=== PATIENT | male | born 1955 | race Asian ===

== ENCOUNTER 2025-01-06 00:19 | Emergency (ER) | payer MEDICARE, OTHER ==
[~2025-01-06] VITALS: Ht 180.3 cm; Wt 92.3 kg
--- NOTE | 2025-01-06 00:26 | ELECTROCARDIOGRAPH REPORT ---
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
--- NOTE | 2025-01-06 00:45 | Physician Documentation ---
History of Present Illness General Chief Complaint: Hypertension Stated Complaint: HIGH BLOOD PRESSURE/ABD PAIN Time Seen by MD: 00:42 History of Present Illness Initial Comments 69-year-old male with a history of hypertension diabetes presents to the emergency room with complaint of high blood pressure as well as intermittent abdominal pain over the last 24 hours. Patient states that yesterday after drinking a white claw he developed abdominal cramping bloating and some discomfort. Patient states he has continued to have lower abdominal discomfort today took his blood pressure at home and he was getting readings as have as 180/120. He states he feels like he has some chills subjective fevers. Patient denies any diarrhea denies any dysuria frequency or urgency. Patient's symptoms are moderate and persistent. He states he has had an appendectomy in the past. Medication Reconciliation Allergies: Coded Allergies: No Known Allergies (Unverified , 01/06/25) Scheduled Tamsulosin Hcl* (Flomax*), 0.4 MG PO DAILY Review of Systems All Other Systems at this time: Reviewed and Negative Physical Exam Physical Exam Vital Signs: Temperature: 98.4, Heart Rate: 69, Respiratory Rate: 14, BP: 141/72, Pulse Oximetry: 99, Weight: 92.300 Oxygen Flow Rate: 0 Physical Exam VITALS: Reviewed and as above. GENERAL: Alert, no apparent distress. HEENT: Normocephalic, atraumatic, PERRL, EOMI, dry mucosa, no erythema GI: Soft, slight distention slight diffuse abdominal tenderness, bowels sounds present, no rebound, guarding, or rigidity BACK: No CVA tenderness, or swelling MUSCULOSKELETAL: No deformities, no edema SKIN: Warm and dry, no rash NEURO: Oriented x4, No motor or sensory deficit PSYCH: Normal mood and affect, no agitation Progress Results/Orders Results/Orders Orders - OHLAVA GAMBLE MD Chest,Single View (01/06/25 00:21) Monitor (01/06/25 00:21) Saline Lock (01/06/25 00:21) Oxygen (01/06/25 00:21) Hs Troponin I W Calculations (01/06/25 02:21) Hs Troponin I W Calculations (01/06/25 03:21) Ct Abdomen Pelvis (01/06/25 01:54) Completed Orders - AVA CORLEY MD Cbc/Diff (01/06/25 00:20) BMP (01/06/25 00:20) Lipase (01/06/25 00:20) CMP (01/06/25 00:20) Chest,Single View (01/06/25 00:21) PBNP (01/06/25 00:21) Electrocardiogram (01/06/25 00:21) Hs Troponin I W Calculations (01/06/25 00:21) Procalcitonin (01/06/25 00:59) Normal Saline 1000ml (0.9% Sodium Chlori (01/06/25 01:55) Ct Abdomen Pelvis (01/06/25 01:54) Ua W/Microscopic, Cult If Ind (01/06/25 01:42) Acetaminophen 1,000mg/100ml Iv (Ofirmev (01/06/25 02:25) Medications Received in ER Medications (Trade) Dose Ordered Sig/Catrachita Route PRN Reason Start Time Stop Time Status Last Admin Dose Admin (0.9% sodium chloride (NS) 1000ml IV soln) 1,000 ml ONCE ONCE IVB 01/06/25 01:55 01/06/25 01:56 DC 01/06/25 02:18 1,000 ML Vital Signs 01/06/25 01/06/25 01/06/25 01/06/25 00:27 00:46 00:55 03:10 Temp 98.4 98.4 98.4 Pulse 69 65 71 Resp 14 16 18 B/P (MAP) 141/72 162/80 (107) 154/99 Pulse Ox 99 99 99 O2 Flow Rate 0 0 Laboratory Tests Test 01/06/25 00:41 01/06/25 01:36 01/06/25 01:42 White Blood Count 15.3 H Red Blood Count 4.79 Hemoglobin 14.0 Hematocrit 42.1 Mean Corpuscular Volume 88.0 Mean Corpuscular Hemoglobin 29.3 Mean Corpuscular Hemoglobin Concent 33.3 Red Cell Distribution Width 14.7 H Platelet Count 267 Mean Platelet Volume 7.7 Neutrophils (%) (Auto) 86.7 H Lymphocytes (%) (Auto) 9.4 L Monocytes (%) (Auto) 3.6 Eosinophils (%) (Auto) 0.1 Basophils (%) (Auto) 0.2 Neutrophils # (Auto) 13.3 H Lymphocytes # (Auto) 1.4 Monocytes # (Auto) 0.6 Eosinophils # (Auto) 0.0 Basophils # (Auto) 0.0 CBC Comment Sodium Level 140 Potassium Level 3.7 Chloride Level 100 Carbon Dioxide Level 26.9 Anion Gap 13 Blood Urea Nitrogen 15 Creatinine 1.55 H Estimated GFR/1.73 m2 45 BUN/Creatinine Ratio 9.7 L Glucose Level 247 H Calcium Level 10.5 H Total Bilirubin 0.6 Aspartate Amino Transf (AST/SGOT) 56 H Alanine Aminotransferase (ALT/SGPT) 118 H Alkaline Phosphatase 31 L Troponin I High Sensitivity 5 Pro-B-Type Natriuretic Peptide < 30 Total Protein 8.2 Albumin 4.1 Globulin 4.1 Albumin/Globulin Ratio 1.0 L Lipase 35 Procalcitonin < 0.05 Chemistry Comments Glucometer 233 H Urine Specimen Description Cln catch midstream Urine Color Yellow Urine Clarity Clear Urine pH 5.5 Urine Specific [place] 1.025 Urine Protein Negative Urine Glucose (UA) 250 H Urine Ketones 40 H Urine Occult Blood Moderate H Urine Nitrite Negative Urine Bilirubin Negative Urine Urobilinogen 0.2 Urine Leukocyte Esterase Negative Urine RBC 20-50 Urine WBC 0-4 Urine Squamous Epithelial Cells None seen Urine Bacteria Few Urine Culture Indicated Not ind Volume Urine Centrifuged 10 ml Urine Comment EKG/XRAY/CT/US/VASC/MRI CT : Impression Patient: OSMEL ROY Medical Record: [id number] [facility] : 1955, Age: 69 Sex: Male Location: ER Patient Status: REG ER Service Date/Time: 01/06/25153 Ordering Physician: AVA CORLEY MD Exam: CT ABDOMEN PELVIS Exam: CT CT ABDOMEN PELVIS History: abd pain Comparison Study: None Technique: Multidetector spiral CT of the abdomen was performed from lung bases to pubic symphysis. Imaging was performed without IV contrast. Axial, coronal and sagittal multiplanar reformats were obtained from the axial data set by the technologist. Radiation Dose : 1. Abdomen/Pelvis: CTDIvol 20 mGy, DLP 1146 mGy*cm. Findings: Evaluation of solid organs is limited due to lack of intravenous contrast use. Lung Bases: No acute findings. Mild scarring/atelectasis. Liver: Mild diffuse hypoattenuation. Gallbladder and Biliary Tree: Unremarkable Pancreas: Unremarkable. Spleen: Unremarkable. Adrenal Glands: Unremarkable. Kidneys/Ureters: 3 mm stone in the right distal ureter with mild upstream hydroureteronephrosis, periureteral and perinephric stranding. Additional nonobstructing 3 mm stone in the right collecting system. No left-sided stone or obstruction. Exophytic left renal simple cysts. Bladder: Grossly unremarkable for degree of distention. Pelvic Organs: Bilateral varicocele and small left hydrocele suspected. Bowel: Normal caliber without wall thickening. No evidence of appendicitis. Vasculature: Mild atherosclerosis. Lymphadenopathy: No obvious adenopathy. Peritoneum: No ascites, free air, or fluid collection. Abdominal Wall: No significant hernia. Musculoskeletal: No acute findings. Degenerative change of the spine and pelvis. IMPRESSION: 1. A 3 mm stone within the right distal ureter results in mild obstructive uropathy. 2. Additional nonobstructing right nephrolith. 3. Hepatic steatosis. Additional chronic and incidental findings above. Radiation optimization: All CT scans at this facility use at least one of these dose optimization techniques: automated exposure control mA and/or kV adjustment per patient size (includes targeted exams where dose is matched to clinical indication) or iterative reconstruction. Electronically Signed by:FLORES BOYCE MD Date & Time: 01/06/25233 Dictated by: FLORES BOYCE MD Dictation date and time: 01/06/25233 Primary Care Provider: NO PRIMARY CARE PROVIDER cc: AVA CORLEY MD ~ Medical Decision Making Findings The patient's EKGs a sinus rhythm rate of 67 with a normal axis and mild diffuse nonspecific ST abnormalities the patient does have Q-waves in V3 and AVF impression is an abnormal EKG time of the EKG was 12:24 a.m. Departure Disposition: 01 HOME / SELF CARE / HOMELESS Impression: Primary Impression: Benign hypertension Additional Impressions: Liver function test abnormality Renal colic Discharge Instructions: Renal Colic, [id number] Additional Instructions: Use Tylenol for pain, continue to drink fluids, take Flomax as prescribed. If your symptoms have not improved significantly in a week follow up with your primary care physician and Urology. You also had elevated liver function test I would follow up with your primary care doctor to recheck these values. Referrals: NO PRIMARY CARE PROVIDER (PCP) Prescriptions Tamsulosin Hcl* (Flomax*) 0.4 Mg Cap.sr.24h 0.4 MG PO DAILY, #14 CAP Prov: AVA CORLEY MD 01/06/25 AVA CORLEY MD Jan 06, 2025 00:45
[2025-01-06 00:54] LABS: MEAN PLATELET VOLUME 7.7 FL (7.4-10.4); RED CELL DISTRIBUTION WIDTH 14.7 % (11.5-14.5)
[2025-01-06 01:10] LABS: CREATININE 1.55 MG/DL (0.60-1.10); TOTAL CARBON DIOXIDE 26.9 MMOL/L (24-32); eCRCL 49 ML/MIN; eGFR 45 ML/MIN
[2025-01-06 01:18] LABS: PRO BRAIN NATRIURETIC PEPTIDE < 30 PG/ML (0-125)
--- NOTE | 2025-01-06 01:34 | RADIOLOGY REPORT ---
CHEST RADIOGRAPH Indication: CP Technique: 1 view Comparison: None FINDINGS: Lines and Tubes: None Lungs/Pleura: No focal consolidation, pleural effusion or pneumothorax. Cardiomediastinum: Size within normal limits for technique. Other: No acute osseous abnormality. IMPRESSION: 1. No acute cardiopulmonary abnormality.
[2025-01-06 01:57] LABS: LEUKOCYTE ESTERASE ,URINE NEGATIVE (Neg); NITRITES, URINE NEGATIVE (Neg); OCCULT BLOOD,URINE MODERATE (Neg)
[2025-01-06 02:04] LABS: UA COLLECTION TYPE CLN CATCH MIDSTREAM
[2025-01-06 02:06] LABS: SQUAMOUS EPITHELIAL CELL,UR NONE SEEN /LPF (FEW)
[2025-01-06] MEDS: normal saline 1000ML IV soln IVB ONE (02:18)
[2025-01-06] MEDS ORDERED: acetaminophen 1,000mg/100ml IV 100 ML IV ONE (02:25)
--- NOTE | 2025-01-06 02:36 | RADIOLOGY REPORT ---
Exam: CT CT ABDOMEN PELVIS History: abd pain Comparison Study: None Technique: Multidetector spiral CT of the abdomen was performed from lung bases to pubic symphysis. I maging was performed without IV contrast. Axial, coronal and sagittal multiplanar reformats were obta ined from the axial data set by the technologist. Radiation Dose : 1. Abdomen/Pelvis: CTDIvol 20 mGy, DLP 1146 mGy*cm. Findings: Evaluation of solid organs is limited due to lack of intravenous contrast use. Lung Bases: No acute findings. Mild scarring/atelectasis. Liver: Mild diffuse hypoattenuation. Gallbladder and Biliary Tree: Unremarkable Pancreas: Unremarkable. Spleen: Unremarkable. Adrenal Glands: Unremarkable. Kidneys/Ureters: 3 mm stone in the right distal ureter with mild upstream hydroureteronephrosis, valerie ureteral and perinephric stranding. Additional nonobstructing 3 mm stone in the right collecting syst em. No left-sided stone or obstruction. Exophytic left renal simple cysts. Bladder: Grossly unremarkable for degree of distention. Pelvic Organs: Bilateral varicocele and small left hydrocele suspected. Bowel: Normal caliber without wall thickening. No evidence of appendicitis. Vasculature: Mild atherosclerosis. Lymphadenopathy: No obvious adenopathy. Peritoneum: No ascites, free air, or fluid collection. Abdominal Wall: No significant hernia. Musculoskeletal: No acute findings. Degenerative change of the spine and pelvis. IMPRESSION: 1. A 3 mm stone within the right distal ureter results in mild obstructive uropathy. 2. Additional nonobstructing right nephrolith. 3. Hepatic steatosis. Additional chronic and incidental findings above. Radiation optimization: All CT scans at this facility use at least one of these dose optimization rosas hniques: automated exposure control mA and/or kV adjustment per patient size (includes targeted exam s where dose is matched to clinical indication) or iterative reconstruction.
[2025-01-06] MEDS ORDERED: TAMS-55 PO (02:43)
[2025-01-06 03:10] VITALS: BP 154/99; PULSE 71; RESP 18; TEMP 98.4; O2SAT 99
== END 2025-01-06 03:16 | disposition home or self-care (01) ==
LOC: ER 00:20
DX: I10 Essential (primary) hypertension (principal); N23 Unspecified renal colic; R06.02 Shortness of breath; E11.9 Type 2 diabetes mellitus without complications
CPT/HCPCS: 36415; 71045; 74176; 80053; 81001; 82948; 83690; 83880; 84145; 84484; 85025; 93005; 96360; 99285; J7030